=== PATIENT | male | born 1985 | race Caucasian/White ===

== ENCOUNTER 2016-10-30 13:22 | Emergency (ER) | payer BC ==
[~2016-10-30] VITALS: Ht 172.7 cm; Wt 91.2 kg
[2016-10-30] MEDS ORDERED: MAALOX/HYOSCYAMINE/LIDOCAINE 45 ML BOTTLE ONE (13:52)
[2016-10-30] MEDS ORDERED: MAALOX/HYOSCYAMINE/LIDOCAINE 45 ML BOTTLE PO ONE (14:00)
[2016-10-30 14:02] VITALS: BP 123/75
[2016-10-30 14:03] LABS: HEMOGLOBIN 14.6 g/dL (13.7-18.0)
[2016-10-30 14:15] LABS: BLOOD UREA NITROGEN 12 mg/dL (7-18)
[2016-10-30 14:25] LABS: IS PT STATUS REG ER OR PRE ER? YES
== END 2016-10-30 14:51 | disposition home or self-care (01) ==
LOC: ED 14:29
DX: R07.2 Precordial pain (principal); R42 Dizziness and giddiness; F41.1 Generalized anxiety disorder; F17.200 Nicotine dependence, unspecified, uncomplicated
CPT/HCPCS: 36415; 71010; 80048; 82040; 84484; 85025; 93005

== ENCOUNTER 2017-02-03 23:04 | Emergency (ER) | payer BC ==
[~2017-02-03] VITALS: Ht 167.6 cm; Wt 97.3 kg
[2017-02-04 00:35] LABS: BLOOD UREA NITROGEN 19 mg/dL (7-18)
[2017-02-04 00:41] LABS: IS PT STATUS REG ER OR PRE ER? YES
[2017-02-04 01:39] VITALS: BP 117/78
== END 2017-02-04 02:02 | disposition home or self-care (01) ==
LOC: ED 23:59
DX: R07.89 Other chest pain (principal)
CPT/HCPCS: 36415; 71010; 80048; 82040; 84484; 85025; 93005

== ENCOUNTER 2019-08-28 11:38 | Day surgery (SDC) | payer BC ==
[~2019-08-28] VITALS: Ht 172.7 cm; Wt 95.1 kg
[2019-08-28] MEDS ORDERED: INDOCYANINE GREEN 25 MG VIAL IVPush STA (11:54)
[2019-08-28] MEDS ORDERED: INDOCYANINE GREEN 25 MG VIAL ONE (11:58)
[2019-08-28] MEDS ORDERED: LACTATED RINGERS 1,000 ML IV SCH (12:09)
[2019-08-28] MEDS ORDERED: NONE PER PT (12:10)
[2019-08-28 12:13] VITALS: BP 123/88
[2019-08-28] MEDS ORDERED: LIDOCAINE-MPF 1%, 2ML ONE (12:18)
[2019-08-28] MEDS ORDERED: LIDOCAINE-MPF 1%, 2ML INFIL ONE (12:30)
[2019-08-28] MEDS ORDERED: PLEASE ENTER HEIGHT AND WEIGHT MC SCH (12:30)
[2019-08-28] MEDS ORDERED: BUPIVACAINE/PF 0.5% ONE (12:51)
[2019-08-28] MEDS ORDERED: EPINEPHRINE 1 MG/ML, 1ML ONE (12:52)
[2019-08-28] MEDS ORDERED: FENTANYL PF 250 MCG/5ML ONE (13:22)
[2019-08-28] MEDS ORDERED: MIDAZOLAM 1 MG/ML, 2ML ONE (13:22)
[2019-08-28] MEDS ORDERED: PROPOFOL 10 MG/ML, 20ML ONE (13:26)
[2019-08-28] MEDS ORDERED: DEXAMETHASONE 4 MG/ML, 1ML ONE (13:26)
[2019-08-28] MEDS ORDERED: CEFAZOLIN 1,000 MG ONE (13:26)
[2019-08-28] MEDS ORDERED: SUCCINYLCHOLINE 20 MG/ML, 10ML ONE (13:26)
[2019-08-28] MEDS ORDERED: ONDANSETRON 2MG/ML, 2ML ONE (13:26)
[2019-08-28] MEDS ORDERED: ROCURONIUM 10 MG/ML,10ML ONE (13:26)
[2019-08-28] MEDS ORDERED: KETOROLAC 30 MG/1 ML IV PRN (14:00)
[2019-08-28] MEDS ORDERED: ALBUTEROL SULFATE 2.5 MG/3 ML NPPB PRN (14:00)
[2019-08-28] MEDS ORDERED: MEPERIDINE/PF 25MG/0.5ML IVPush PRN (14:00)
[2019-08-28] MEDS ORDERED: METOCLOPRAMIDE 5 MG/ML, 2ML IV PRN (14:00)
[2019-08-28] MEDS ORDERED: hydrALAzine 20 MG/ML, 1ML IV PRN (14:00)
[2019-08-28] MEDS ORDERED: PROMETHAZINE 25 MG/ML, 1ML IV PRN (14:00)
[2019-08-28] MEDS ORDERED: DIAZEPAM 5 MG/ML, 2ML IV PRN ×2 (14:00)
[2019-08-28] MEDS ORDERED: OXYcodone 5 MG/5 ML ORAL.SOL UDC PO PRN ×2 (14:00→14:30)
[2019-08-28] MEDS ORDERED: LABETALOL 5MG/ML, 20ML IV PRN (14:00)
[2019-08-28] MEDS ORDERED: ONDANSETRON 2MG/ML, 2ML IVPush PRN ×2 (14:00→14:30)
[2019-08-28] MEDS ORDERED: FENTANYL PF 100 MCG/2ML ONE (14:47)
[2019-08-28] MEDS: FENTANYL PF 100 MCG/2ML IV PRN ×2 (14:50→14:59)
[2019-08-28] MEDS ORDERED: KETOROLAC 30 MG/1 ML ONE (14:51)
[2019-08-28] MEDS ORDERED: OXYcodone 5 MG/5 ML ORAL.SOL UDC ONE (14:52)
[2019-08-28] MEDS ORDERED: HYDROmorphone 1 MG/ML, 1ML INJ ONE (14:52)
[2019-08-28] MEDS: HYDROmorphone 1 MG/ML, 1ML INJ IV PRN ×2 (15:04→15:15)
== END 2019-08-28 16:40 | disposition home or self-care (01) ==
LOC: OUT 11:38
PROVIDERS: ATTEND Surgery
DX: K80.10 Calculus of gallbladder with chronic cholecystitis without obstruction (principal); F17.210 Nicotine dependence, cigarettes, uncomplicated
CPT/HCPCS: 47562; 88304; J0171; J0330; J0690; J1100; J1170; J1885; J2250; J2405; J2704; J3010; J7120; S2900